=== PATIENT | female | born 1965 | race Caucasian/White ===

== ENCOUNTER 2021-02-22 03:00 | Emergency (ER) | payer BC ==
[2021-02-22 03:08] VITALS: RESP 18; TEMP 98.4
[2021-02-22] MEDS ORDERED: SODIUM CHLORIDE 0.9% 1,000 ML IV STA (03:09)
--- NOTE | 2021-02-22 03:10 | ED ---
Abdominal Pain HPI - General Chief Complaint: Abdominal Pain Stated Complaint: Abdominal Pain Time Seen by Provider: 02/22/21 03:06 Source: patient, RN notes reviewed, old records reviewed Mode of arrival: ambulatory Limitations: no limitations - History of Present Illness Initial Comments: This is a 56-year-old female to the emergency department for evaluation of severe pain severe abdominal pain flank pain today. Patient's pain was sudden onset is been persistent since it began. No prior history of kidney stones. Patient has no abdominal pain mild nausea with active vomiting. No fevers. Again pain was sudden onset just prior to arrival MD Complaint: abdominal pain, flank pain (Left-sided) -: hour(s) Location: LLQ, suprapubic, L flank Radiation: suprapubic Migration to: suprapubic Severity: severe Quality: sharp Consistency: constant Improves With: nothing Worsens With: nothing Associated Symptoms: nausea, vomiting Treatments Prior to Arrival: other (none) - Related Data Allergies Allergy/AdvReac Type Severity Reaction Status Date / Time Estrogens AdvReac Unknown Verified 02/22/21 03:08 Childhood Review of Systems ROS Statement: Those systems with pertinent positive or pertinent negative responses have been documented in the HPI. ROS Other: All systems not noted in ROS Statement are negative. Past Medical History Past Medical History: No Reported History History of Any Multi-Drug Resistant Organisms: None Reported Past Surgical History: No Surgical Hx Reported Past Psychological History: No Psychological Hx Reported Smoking Status: Former smoker Past Alcohol Use History: Rare Past Drug Use History: None Reported General Exam Limitations: no limitations General appearance: alert, in no apparent distress, anxious Head exam: Present: atraumatic, normocephalic, normal inspection Eye exam: Present: normal appearance, PERRL, EOMI. Absent: scleral icterus, conjunctival injection, periorbital swelling ENT exam: Present: normal exam, mucous membranes moist Neck exam: Present: normal inspection. Absent: tenderness, meningismus, lymphadenopathy Respiratory exam: Present: normal lung sounds bilaterally. Absent: respiratory distress, wheezes, rales, rhonchi, stridor Cardiovascular Exam: Present: regular rate, normal rhythm, normal heart sounds. Absent: systolic murmur, diastolic murmur, rubs, gallop, clicks GI/Abdominal exam: Present: soft, normal bowel sounds. Absent: distended, tenderness, guarding, rebound, rigid Extremities exam: Present: normal inspection, full ROM, normal capillary refill. Absent: tenderness, pedal edema, joint swelling, calf tenderness Back exam: Present: normal inspection Neurological exam: Present: alert, oriented X3, CN II-XII intact Psychiatric exam: Present: normal affect, normal mood Skin exam: Present: warm, dry, intact, normal color. Absent: rash Course Vital Signs 02/22/21 02/22/21 02/22/21 03:05 03:46 05:51 Temperature 98.4 F Pulse Rate 90 72 71 Respiratory 18 18 18 Rate Blood Pressure 165/67 141/74 142/71 O2 Sat by Pulse 100 100 97 Oximetry - Reevaluation(s) Reevaluation #1: 02/22/21 Medical record is reviewed Patient symptoms are significantly improved here in the emergency department Patient informed results and questions answered Medical Decision Making - Medical Decision Making 56 female to the ER for evaluation of flank pain. Patient does have positive kidney stone. Patient given pain control feels well and can be discharged home - Lab Data Result diagrams: 02/22/21 03:48 02/22/21 03:48 Lab Results 02/22/21 02/22/21 02/22/21 Range/Units 03:48 03:48 03:48 WBC 6.7 (3.8-10.6) k/uL RBC 5.16 (3.80-5.40) m/uL Hgb 16.1 H (11.4-16.0) gm/dL Hct 48.2 H (34.0-46.0) % MCV 93.3 (80.0-100.0) fL MCH 31.2 (25.0-35.0) pg MCHC 33.4 (31.0-37.0) g/dL RDW 13.3 (11.5-15.5) % Plt Count 292 (150-450) k/uL MPV 7.9 Neutrophils % 61 % Lymphocytes % 28 % Monocytes % 4 % Eosinophils % 3 % Basophils % 1 % Neutrophils # 4.1 (1.3-7.7) k/uL Lymphocytes # 1.9 (1.0-4.8) k/uL Monocytes # 0.3 (0-1.0) k/uL Eosinophils # 0.2 (0-0.7) k/uL Basophils # 0.1 (0-0.2) k/uL Sodium 139 (137-145) mmol/L Potassium 3.8 (3.5-5.1) mmol/L Chloride 106 (98-107) mmol/L Carbon Dioxide 20 L (22-30) mmol/L Anion Gap 13 mmol/L BUN 19 H (7-17) mg/dL Creatinine 1.02 (0.52-1.04) mg/dL Est GFR (CKD-EPI)AfAm 71 (>60 ml/min/1.73 sqM) Est GFR (CKD-EPI)NonAf 62 (>60 ml/min/1.73 sqM) Glucose 141 H (74-99) mg/dL Lactic Ac Sepsis Rflx Plasma Lactic Acid Liban 3.9 H* (0.7-2.0) mmol/L Calcium 10.2 (8.4-10.2) mg/dL Total Bilirubin 0.5 (0.2-1.3) mg/dL AST 26 (14-36) U/L ALT 22 (4-34) U/L Alkaline Phosphatase 97 (38-126) U/L Total Protein 7.3 (6.3-8.2) g/dL Albumin 4.6 (3.5-5.0) g/dL Amylase 105 (30-110) U/L Lipase 221 (23-300) U/L Urine Color Urine Appearance (Clear) Urine pH (5.0-8.0) Ur Specific Stephenson (1.001-1.035) Urine Protein (Negative) Urine Glucose (UA) (Negative) Urine Ketones (Negative) Urine Blood (Negative) Urine Nitrite (Negative) Urine Bilirubin (Negative) Urine Urobilinogen (<2.0) mg/dL Ur Leukocyte Esterase (Negative) Urine RBC (0-5) /hpf Urine WBC (0-5) /hpf Ur Squamous Epith Cells (0-4) /hpf Urine Bacteria (None) /hpf Hyaline Casts (0-2) /lpf Urine Mucus (None) /hpf 02/22/21 02/22/21 Range/Units 04:30 05:46 WBC (3.8-10.6) k/uL RBC (3.80-5.40) m/uL Hgb (11.4-16.0) gm/dL Hct (34.0-46.0) % MCV (80.0-100.0) fL MCH (25.0-35.0) pg MCHC (31.0-37.0) g/dL RDW (11.5-15.5) % Plt Count (150-450) k/uL MPV Neutrophils % % Lymphocytes % % Monocytes % % Eosinophils % % Basophils % % Neutrophils # (1.3-7.7) k/uL Lymphocytes # (1.0-4.8) k/uL Monocytes # (0-1.0) k/uL Eosinophils # (0-0.7) k/uL Basophils # (0-0.2) k/uL Sodium (137-145) mmol/L Potassium (3.5-5.1) mmol/L Chloride (98-107) mmol/L Carbon Dioxide (22-30) mmol/L Anion Gap mmol/L BUN (7-17) mg/dL Creatinine (0.52-1.04) mg/dL Est GFR (CKD-EPI)AfAm (>60 ml/min/1.73 sqM) Est GFR (CKD-EPI)NonAf (>60 ml/min/1.73 sqM) Glucose (74-99) mg/dL Lactic Ac Sepsis Rflx Y Plasma Lactic Acid Liban (0.7-2.0) mmol/L Calcium (8.4-10.2) mg/dL Total Bilirubin (0.2-1.3) mg/dL AST (14-36) U/L ALT (4-34) U/L Alkaline Phosphatase (38-126) U/L Total Protein (6.3-8.2) g/dL Albumin (3.5-5.0) g/dL Amylase (30-110) U/L Lipase (23-300) U/L Urine Color Yellow Urine Appearance Cloudy H (Clear) Urine pH 6.5 (5.0-8.0) Ur Specific Stephenson 1.024 (1.001-1.035) Urine Protein Trace H (Negative) Urine Glucose (UA) Negative (Negative) Urine Ketones Negative (Negative) Urine Blood Large H (Negative) Urine Nitrite Negative (Negative) Urine Bilirubin Negative (Negative) Urine Urobilinogen <2.0 (<2.0) mg/dL Ur Leukocyte Esterase Negative (Negative) Urine RBC >182 H (0-5) /hpf Urine WBC 5 (0-5) /hpf Ur Squamous Epith Cells 18 H (0-4) /hpf Urine Bacteria Rare H (None) /hpf Hyaline Casts 4 H (0-2) /lpf Urine Mucus Many H (None) /hpf - Radiology Data Radiology results: report reviewed (CT abdomen and pelvis is positive for kidney stone), image reviewed Disposition Clinical Impression: Left ureteral stone Disposition: HOME SELF-CARE Condition: Good Instructions (If sedation given, give patient instructions): Kidney Stones (ED) Is patient prescribed a controlled substance at d/c from ED?: No Referrals: Nonstaff,Physician [Primary Care Provider] - 1-2 days
[2021-02-22] MEDS ORDERED: KETOROLAC 15 MG/ML 1 ML VIAL IVP STA (03:13)
[2021-02-22] MEDS ORDERED: HYDROmorphone 1 MG/ML 1 ML SYRINGE IVP STA (03:13)
[2021-02-22] MEDS ORDERED: PANTOPRAZOLE 40 MG/10 ML VIAL IVP STA (03:13)
[2021-02-22] MEDS ORDERED: ONDANSETRON 4 MG/2 ML VIAL IVP STA (03:13)
[2021-02-22 04:01] LABS: Basophils # (A) 0.1 k/uL (0-0.2); Basophils % (A) 1 %; Eosinophils # (A) 0.2 k/uL (0-0.7); Eosinophils % (A) 3 %; HCT 48.2 % (34.0-46.0); HGB 16.1 gm/dL (11.4-16.0); Lymphocytes # (A) 1.9 k/uL (1.0-4.8); Lymphocytes % (A) 28 %; MCH 31.2 pg (25.0-35.0); MCHC 33.4 g/dL (31.0-37.0); MCV 93.3 fL (80.0-100.0); Mean Platelet Volume 7.9; Monocytes # (A) 0.3 k/uL (0-1.0); Monocytes % (A) 4 %; Neutrophils # (A) 4.1 k/uL (1.3-7.7); Neutrophils % (A) 61 %; Platelet Count 292 k/uL (150-450); RBC 5.16 m/uL (3.80-5.40); RDW 13.3 % (11.5-15.5); WBC 6.7 k/uL (3.8-10.6)
--- NOTE | 2021-02-22 04:14 | CT ---
EXAMINATION TYPE: CT abdomen pelvis wo con DATE OF EXAM: 02/22/2021 COMPARISON: None HISTORY: ABDOMINAL PAIN CT DLP: 762.3 mGycm Automated exposure control for dose reduction was used. Images obtained from the diaphragm to the floor the pelvis without contrast. Lung bases are clear. There is no pleural effusion. There is small hiatal hernia. Heart size is greg l. Liver spleen pancreas gallbladder appear intact. The bile ducts are not dilated. There is no adrenal mass. Kidneys have normal size. There is left-sided hydronephrosis and hydrourete r. There is 4 mm calculus in the lower left ureter. There is no retroperitoneal adenopathy. Appendix appears normal. Bladder distends smoothly. There is no inguinal hernia. There is no evidence of a pel stiven mass. There is no free fluid in the pelvis. There is no mesenteric edema. There is no ascites or free air. There is no bowel obstruction. The lumbar vertebra have normal alignment. There is no compression fracture. Uterus is anteverted. Po sterior elements are intact. Bony pelvis is intact. IMPRESSION: Obstructing calculus in the lower left ureter with left-sided hydronephrosis and hydroureter. Normal appendix.
[2021-02-22] MEDS ORDERED: TAMSULOSIN 0.4 MG CAP.ER.24H PO STA (04:22)
[2021-02-22] MEDS ORDERED: IBUPROFEN 600 MG STARTER PACK 4 TAB BTL PO STA (04:22)
[2021-02-22] MEDS ORDERED: ACET/COD 300 MG/30 MG STARTER PACK 6 TAB BTL PO STA (04:22)
[2021-02-22] MEDS ORDERED: ONDANSETRON 4 MG ODT STARTER PACK 2 TAB BTL PO STA (04:22)
[2021-02-22 04:43] LABS: Albumin 4.6 g/dL (3.5-5.0); Calcium 10.2 mg/dL (8.4-10.2); Potassium 3.8 mmol/L (3.5-5.1); Total Bilirubin 0.5 mg/dL (0.2-1.3); Total Protein 7.3 g/dL (6.3-8.2)
[2021-02-22 05:09] LABS: Appearance,Urine Cloudy (Clear); Bacteria,Urine Rare /hpf; Bilirubin,Urine Negative (Negative); Blood,Urine Large (Negative); Color,Urine Yellow; Glucose,Urine (UA) Negative (Negative); Hyaline Casts,Urine 4 /lpf (0-2); Ketones,Urine Negative (Negative); Leukocyte Esterase,Urine Negative (Negative); Mucus,Urine Many /hpf; Nitrite,Urine Negative (Negative); PH, Urine 6.5 (5.0-8.0); Protein,Urine Trace (Negative); RBC,Urine >182 /hpf (0-5); Specific Gravity,Urine 1.024 (1.001-1.035); Squamous Epithelial Cell,Urine 18 /hpf (0-4); Urobilinogen,Urine <2.0 mg/dL (<2.0); WBC,Urine 5 /hpf (0-5)
[2021-02-22 05:52] VITALS: BP 142/71; PULSE 71
== END 2021-02-22 05:52 | disposition home or self-care (01) ==
LOC: EC 03:00
DX: N20.1 Calculus of ureter (principal); Z87.891 Personal history of nicotine dependence
CPT/HCPCS: 36415; 80053; 82150; 83605; 83690; 85025; 81001; 74176; 99284; 96374; 96375 ×3; 96361; J2405; J1170; J1885; S0119; C9113

== ENCOUNTER → 2022-08-21 | Outpatient (CLI) | payer BC ==
--- NOTE | 2022-08-22 09:08 | MM ---
Reason for Exam: Screening (asymptomatic). Patient History: Menarche at age 12. Patient has no children. Postmenopausal. Other cancer under age 50. Maternal aunt had ovarian cancer. Mother had ovarian cancer. Risk Values: Chloe 5 year model risk: 1.4%. NCI Lifetime model risk: 8.7%. Prior Study Comparison: No prior studies available for comparison. Tissue Density: There are scattered fibroglandular densities. Findings: Analyzed By CAD. No suspicious calcifications seen. 12:00 nodule left breast 3.7 mm from the nipple measures 5 mm. Retroareolar nodular density also seen within the right breast. Bilateral breast ultrasound recommended. Overall Assessment: Incomplete: need additional imaging evaluation, BI-RAD 0 Management: Diagnostic Breast Ultrasound of both breasts. . Patient should continue monthly self-breast exams. A clinical breast exam by your physician is recommended on an annual basis. This exam should not preclude additional follow-up of suspicious palpable abnormalities. Note on Chloe scores and lifetime risk: 1. A Chloe score greater than 3% is considered moderate risk. If this is the case, consider specialist referral to assess eligibility for a risk reducing agent. 2. If overall lifetime risk for the development of breast cancer is 20% or higher, the patient may qualify for future screening with alternating mammogram and breast MRI. Electronically signed and approved by: Wilfrid Dior M.D. Radiologis
== END | disposition home or self-care (01) ==
LOC: RADMAMWWP 13:45
DX: Z12.31 Encounter for screening mammogram for malignant neoplasm of breast (principal); Z78.0 Asymptomatic menopausal state; Z80.3 Family history of malignant neoplasm of breast
CPT/HCPCS: 77067

== ENCOUNTER → 2022-08-26 | Outpatient (CLI) | payer BC ==
--- NOTE | 2022-08-26 14:02 | USB ---
Reason for Exam: Additional evaluation requested from abnormal screening. Patient History: Menarche at age 12. Patient has no children. Postmenopausal. Other cancer under age 50. Maternal aunt had ovarian cancer. Mother had ovarian cancer. Risk Values: Chloe 5 year model risk: 1.4%. NCI Lifetime model risk: 8.7%. Technique: Method: Targeted. Prior Study Comparison: 08/21/2022 Bilateral MG screening mammo w CAD, [facility]. Findings: The upper section of the breast of the left breast, the periareolar of the right breast and the retroareolar of both breasts were scanned. Targeted ultrasound of the right breast in the retroareolar region was performed. The retroareolar nodularity within the right breast on mammogram is not identified. Targeted ultrasound left breast at 11-1 o'clock with this evaluation of the nipple was performed. Simple thin-walled cysts identified within the left breast at 12:00 4 cm from the nipple measuring 0.4 x 0.3 x 0.4 cm corresponding to mammogram. Overall Assessment: Probably benign, BI-RAD 3 Management: Diagnostic Mammogram of the right breast in 6 months. A clinical breast exam by your physician is recommended on an annual basis and results should be correlated with mammographic findings. This exam should not preclude additional follow-up of suspicious palpable abnormalities. Results were given to the patient verbally at the time of exam. Electronically signed and approved by: Eliazar So D.O.
== END | disposition home or self-care (01) ==
LOC: RADUSWWP 13:35
PROVIDERS: ATTEND Family Medicine
DX: R92.8 Other abnormal and inconclusive findings on diagnostic imaging of breast (principal); Z78.0 Asymptomatic menopausal state; Z80.41 Family history of malignant neoplasm of ovary